=== PATIENT | male | born 1950 | race Caucasian/White ===

== ENCOUNTER 2016-08-30 17:51 | Emergency (ER) | payer MEDICARE ==
[~2016-08-30] VITALS: Ht 172.7 cm; Wt 80.0 kg
[~2016-08-30 17:51] MED LIST: AMIO200T PO; AMLO10TA80 PO; ATOR40TA70 PO; CALCIUM CHLORIDE 1GM/10ML SYR IV ONE; CARV3.1242 PO; EPINEPHRINE 0.1MG/ML (1:10,000) 10ML SYR ONE; INSLAN SQ; INSU100C3 SQ; NEPVIT PO; PANT40TA4 PO; SEVE800T PO; SODIUM BICARBONATE 7.5% 0.9 MEQ/ML 50ML SYR IV ONE; TRAM50TA3 PO; WARF5TAB76 PO
[2016-08-30 18:00] VITALS: BP 0/0
== END 2016-08-30 17:59 | disposition expired ==
LOC: ER 17:51
DX: I46.9 Cardiac arrest, cause unspecified (principal); E11.9 Type 2 diabetes mellitus without complications; I25.10 Atherosclerotic heart disease of native coronary artery without angina pectoris; R06.02 Shortness of breath; Z79.01 Long term (current) use of anticoagulants; Z79.4 Long term (current) use of insulin; Z87.891 Personal history of nicotine dependence; Z86.73 Personal history of transient ischemic attack (TIA), and cerebral infarction without residual deficits; Z95.1 Presence of aortocoronary bypass graft
CPT/HCPCS: 31500; 82962; 92950; 99285; J0171; J3490